=== PATIENT | male | born 1960 | race Caucasian/White ===

== ENCOUNTER 2020-09-26 21:49 | Emergency (ER) | payer OTHER, SELFPAY ==
[2020-09-26 21:50] VITALS: BP 183/120; PULSE 96; RESP 16; TEMP 36.8; O2SAT 98; BMI 28.8
--- NOTE | 2020-09-26 22:20 | XR_ITS ---
PROCEDURE: XR PELVIS 1-2V CLINICAL INDICATION: back pain Posttraumatic pain COMPARISON: No exams were available for comparison TECHNIQUE: XR Pelvis AP View FINDINGS: No fracture or dislocation is evident. No significant degenerative change. Contrast is present in the urinary bladder in both distal ureters from recent CT scan. No evidence of contrast extravasation. IMPRESSION: No acute findings. Dictated by: Ady Layne MD 09/27/2020 06:00 Ady Layne MD in [facility] 09/27/2020 06:00
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
--- NOTE | 2020-09-26 22:20 | CT_ITS ---
PROCEDURE: CT THORACIC SPINE WO CON CLINICAL HISTORY: back pain Injury with pain COMPARISON: No exams were available for comparison TECHNIQUE: Axial images obtained with sagittal and coronal reformats. All CT scans at the facility use one or more dose reduction, viz: automated exposure control, ma/kV adjustment per patient size (including targeted exams where dose is matched to indication, i.e. head), or iterative reconstruction technique. FINDINGS: Normal alignment. No fracture or dislocation. No lytic or blastic change. Mild multilevel thoracic spondylosis. Anterior osteophytes are present. Small central disc protrusion at T9-T10, mild right foraminal narrowing T4-T5 and on the left at T5-T6 and on the left at T7-T8 and T8-T9 and T9-T10 IMPRESSION: No acute fracture. Thoracic spondylosis. Small central disc protrusion T9-T10 Dictated by: Ady Layne MD 09/27/2020 06:42 Ady Layne MD in [facility] 09/27/2020 06:42
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
[2020-09-26 22:27] LABS: Basophils # 0.1 K/mm3 (0-0.2); Basophils % 0.6 % (0.1-2.0); Eosinophils # 0.2 K/mm3 (0.0-0.4); Hematocrit 47.6 % (42.0-52.0); Hemoglobin 15.8 g/dL (14.1-18.0); Lymphocytes # 2.3 K/mm3 (0.7-4.5); Lymphocytes % 29.4 % (10-50); Mean Corpuscular HGB Conc 33.1 g/dL (31.8-35.4); Mean Corpuscular Hemoglobin 29.2 pg (27.0-31.2); Mean Corpuscular Volume 88.2 fl (80-94); Monocytes # 0.5 K/mm3 (0.1-1.0); Monocytes % 6.7 % (1.7-9.3); Neutrophils # 4.7 K/mm3 (1.8-7.8); Neutrophils % 61.2 % (37.0-80.0); Platelet Count 279 K/mm3 (142-424); Red Cell Distribution Width 13.6 % (11.5-17.5); White Blood Count 7.7 K/mm3 (4.8-10.8)
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
[2020-09-26 22:30] VITALS: BP 138/97; PULSE 87; RESP 17; O2SAT 94
[2020-09-26 22:32] LABS: Chloride 104 mmol/L (98-107); Potassium 3.9 mmoL/L (3.5-5.1); Sodium 140 mmol/L (136-145)
[2020-09-26 22:35] LABS: Anion Gap 8.9 mEq/L (5-15); Blood Urea Nitrogen 24 mg/dl (9-20); Calcium 9.9 mg/dl (8.4-10.2); Carbon Dioxide 31 mmol/L (22.0-30.0); Creatinine Clearance Estimated 88 mL/min (50-200); Estimated Glomerular Filt Rate 68 ml/min (>60); GFR (African American) 82 ML/MIN (>60); Glucose 112 mg/dl (74-100)
[2020-09-27 00:22] VITALS: BP 141/98; PULSE 75; RESP 16; TEMP 36.6; O2SAT 99
== END 2020-09-27 00:23 | disposition home or self-care (01) ==
PROVIDERS: Emergency Provider Emergency Medicine
DX: S20.211A Contusion of right front wall of thorax, initial encounter (principal); S29.019A Strain of muscle and tendon of unspecified wall of thorax, initial encounter; V89.2XXA Person injured in unspecified motor-vehicle accident, traffic, initial encounter; Y92.488 Other paved roadways as the place of occurrence of the external cause
CPT/HCPCS: 71275; 72125; 72128; 72170; 74177; 80048; 85025; 99283; Q9967